=== PATIENT | male | born 1985 | race Caucasian/White ===

== ENCOUNTER → 2016-10-22 | Outpatient (CLI) | payer OTHER ==
[~2016-10-22] MED LIST: AMOX500T PO; PRED10TA PO
[2016-10-22 13:04] LABS: BASO % 0.2 %; BASO ABS # 0.02 K/uL (0-0.2); COMPLETE YES; EOS % 0.5 %; HEMATOCRIT 47.8 % (42-52); IG% 0.1 %; LYMPH % 26.1 %; LYMPH ABS # 2.25 K/uL (1.2-3.4); MEAN CELL VOLUME 92.3 fL (80-100); MEAN CORPUSCULAR HEMOGLOBIN 30.5 pg (25-34); MEAN CORPUSCULAR HGB CONC 33.1 g/dl (32-36); MEAN PLATELET VOLUME 11.5 fL (7.4-10.4); MONO % 8.4 %; NEUT % 64.7 %; PLATELET COUNT 265 K/uL (130-400); RED BLOOD COUNT 5.18 M/uL (4.7-6.1); WHITE BLOOD COUNT 8.61 K/uL (4.8-10.8)
[2016-10-22 13:29] LABS: PROTHROMBIN TIME (PATIENT) 10.7 SECONDS (9.0-12.0)
== END | disposition home or self-care (01) ==
LOC: C.LAB1850 11:55
DX: Z01.818 Encounter for other preprocedural examination (principal)

== ENCOUNTER → 2016-10-26 | Day surgery (SDC) | payer OTHER ==
[2016-10-23 14:06] VITALS: Ht 182.9 cm; Wt 81.8 kg
[~2016-10-26] VITALS: Ht 182.9 cm; Wt 81.8 kg
[~2016-10-26] MED LIST changes: +ATROPINE SULFATE 0.1 MG/ML 5ML SYR IV PRN; +BACITRACIN/POLYMYXIN B OINT 15 GM TUBE EXT ONE; +CEFAZOLIN 2000 MG/60 ML D5W IV SCH; +DEXAMETHASONE SOD INJ 4 MG/ML VIAL ONE; +EpHEDrine SULFATE INJ 50 MG/ML AMP IV PRN; +EpINEphrine INJ 1MG/ML AMP 1 MG/ML AMP ONE; +FENTANYL CITRATE INJ 50 MCG/1 ML 2 ML VIAL IV PRN; +FENTANYL CITRATE INJ 50 MCG/1 ML 2 ML VIAL ONE; +GLYCOPYRROLATE INJ 0.2 MG/ML VIAL ONE; +HYDROCODONE/ACETAMOPHEN 5/325MG TAB PO PRN; +LACTATED RINGER'S 1000ML 1,000 ML IV SCH; +LIDOCAINE 4% MPF SOAK 5 ML = 1 DOSE TOP ONE; +LIDOCAINE HCL 2% 2 ML VIAL (20MG/ML) ONE; +LIDOCAINE/EPINEPHRINE 1% INJ 50 ML VIAL ONE; +MIDAZOLAM HCL 1 MG/ML 2ML VIAL ONE; +NEOSTIGMINE METHYLSULFATE 5 MG/5 ML SYR ONE; +ONDANSETRON INJ 2 MG/ML 2 ML VIAL IV PRN; +ONDANSETRON INJ 2 MG/ML 2 ML VIAL ONE; +OXYMETAZOLINE HCL 0.05% NA SPR 15 ML BTL NAE SCH; +OXYMETAZOLINE HCL 0.05% NA SPR 15 ML BTL PRN; +PROPOFOL IV EMULSION 10 MG/ML 20 ML VIAL IV ONE; +SCOPOLAMINE 1.5 MG TDSY TD ONE
--- NOTE | 2016-10-26 11:42 | History & Physical Bridge - [place] ---
H&P Re-Evaluation Bridge Note: I have examined the patient, reviewed the History & Physical and in the interval since the performance of the History & Physical I have noted the following changes of clinical significance: No changes noted
--- NOTE | 2016-10-26 13:38 | [facility] Operative Report ---
Operative Report Operative Date Oct 26, 2016. Pre-Operative Diagnosis Chronic Sinusitis, Hypertrophy of Nasal Turbinates, Deviated Nasal Septum Post-Operative Diagnosis Same Procedure(s) Performed Image Guided Bilateral Functional Endoscopic Sinus Surgery, Septoplasty, Bilateral Inferior Turbinate Outfracture And Turbinoplasty Surgeon Dr Ray Toll Line Mechanic Surgeon(s) None Estimated Blood Loss 50 mL Findings 1. SEVERE R>L DNS 2. SEVERE B POLYPOSIS WITHIN ETHMOID SINUSES 3. L>R ITH 4. MILD MUCOSAL THICKENING B MAXILLARY AND FRONTAL SINUSES Specimens None I attest to the content of the Intraoperative Record and any orders documented therein. Any exceptions are noted below.
--- NOTE | 2016-10-26 13:42 | Discharge Instructions ---
Discharge Instructions Date of Service Oct 26, 2016. Admission Reason for Admission: Chronic Sinusitis, Hypertrophy Turbintes, Deviated Discharge Discharge Diagnosis / Problem: SAME Discharge Goals Goal(s): Therapeutic intervention Activity Recommendations Activity Limitations: as noted below 1. LIGHT ACTIVITY FOR 2WEEKS 2. NO NOSE BLOWING FOR 2 WEEKS 3. NO ASA/NSAID'S FOR 2WEEKS 4. NO DRIVING WHILE ON NORCO . Current Hospital Diet Patient's current hospital diet: Discharge Diet Recommended Diet: Regular Diet Procedures Procedures Performed: Image Guided Bilateral Functional Endoscopic Sinus Surgery, Septoplasty, Bilateral Inferior Turbinate Outfracture And Turbinoplasty Pending Studies Studies pending at discharge: no Medical Emergencies . Who to Call and When: Medical Emergencies: If at any time you feel your situation is an emergency, please call 911 immediately. . Non-Emergent Contact Non-Emergency issues call your: Surgeon . . "Provider Documentation" section prepared by Jeff Ray. . VTE Core Measure Inpt VTE Proph given/why not?: SCD's
[2016-10-26 14:25] VITALS: TEMP 37
--- NOTE | 2016-10-26 14:45 | Anesthesia Progress Nt - [facility] ---
Anesthesia Post Op Note Date & Time Oct 26, 2016 at 14:45 Vital Signs Pain Intensity: 4 Vital Signs Past 12 Hours Date Time Temp Pulse Resp B/P (MAP) Pulse Ox O2 Delivery O2 Flow Rate FiO2 10/26/16 14:07 Room Air 10/26/16 13:42 36.8 74 16 166/96 99 Diffusion Mask 5 10/26/16 10:09 36.8 59 20 125/76 (92) 95 Room Air Notes Mental Status: alert / awake / arousable, participated in evaluation Pt Amnestic to Procedure: Yes Nausea / Vomiting: adequately controlled Pain: adequately controlled Airway Patency, RR, SpO2: stable & adequate BP & HR: stable & adequate Hydration State: stable & adequate Anesthetic Complications: no major complications apparent
--- NOTE | 2016-10-26 14:46 | OPERATIVE REPORT ---
DATE OF OPERATION: 10/26/2016 PREOPERATIVE DIAGNOSES: 1. Chronic sinusitis. 2. Right greater than left, septal deviation. 3. Left greater than right inferior turbinate hypertrophy. POSTOPERATIVE DIAGNOSES: 1. Chronic sinusitis. 2. Right greater than left, septal deviation. 3. Left greater than right inferior turbinate hypertrophy. PROCEDURES: [employer] Bustronic fusion image guided bilateral endoscopic sinus surgery consisting of: 1. Bilateral maxillary antrostomies. 2. Bilateral complete ethmoidectomies. 3. Bilateral balloon sinuplasty assisted frontal sinusotomies. 4. Septoplasty. 5. Bilateral inferior turbinate outfracture and turbinoplasties. ANESTHESIA: General endotracheal. ESTIMATED BLOOD LOSS: 50 mL. FINDINGS: 1. Severe right greater than left, septal deviation with bony septal spur impinging on the lateral nasal wall and inferior turbinate posteriorly. 2. Left greater than right inferior turbinate hypertrophy. 3. Severe polyposis involving the right greater than left ethmoid sinuses. 4. Mild mucosal thickening involving the bilateral frontal and maxillary sinuses. SURGEON: Dr. Ray. SPECIMENS: None. COMPLICATIONS: None. INDICATIONS FOR THE PROCEDURE: The patient is a 31-year-old male with a history of chronic sinusitis which has been refractory to maximal medical therapy including systemic antibiotics and steroids. A posttreatment CT scan showed near pansinusitis with sparing of the sphenoid sinuses in addition to severe right greater than left septal deviation, and left greater than right inferior turbinate hypertrophy. The patient presents for the above-mentioned procedures on an outpatient elective basis. OPERATION AND FINDINGS: DETAILS OF PROCEDURE: After informed consent had been obtained from the patient, the patient was wheeled to the operating room and placed on the operating table in the supine position. Monitors were placed. After induction of general endotracheal anesthesia, the patient was prepped in usual fashion for image guided sinus surgery. The [employer] fusion headset was placed over the forehead and was registered, calibrated and verified and used for the frontal sinus portions of the case as well as the ethmoid sinus portions of the case. Lidocaine and epinephrine pledgets were placed in the bilateral nasal cavities and pressure applied. After allowing adequate time for vasoconstriction and decongestion, left-sided pledgets were removed and a Sylvania elevator was used to medialize the left middle turbinate. The left middle turbinate and lateral nasal wall were injected with 1% lidocaine with 1:100,000 epinephrine. A lidocaine and epinephrine pledget was then placed in the left middle meatus. The right side was then addressed in a similar fashion. The left-sided pledget was removed. A Sylvania elevator was used to incise the uncinate process and a straight Kunal-Cut forceps and powered instrumentation was used to perform an uncinate resection. The natural ostium of the maxillary sinus was identified and this was enlarged anteriorly, inferiorly, and posteriorly using backbiting forceps and powered instrumentation. A complete ethmoidectomy was then performed using powered instrumentation. Of note, the patient had severe polyposis involving the ethmoid sinuses. A frontal sinus suction using navigation was then used to cannulate the left frontal sinus. A #6 frontal sinus balloon was then inserted into the frontal recess tract and dilated to 12 atmospheres of pressures in 2 different locations. The balloon and catheter were then removed. Powered instrumentation was used to remove polypoid tissue from the left frontal ethmoidal recess. The right side was then addressed in a similar fashion with similar intraoperative findings except the polyposis was more severe on the right and ethmoid sinus. The nasal septum was then injected with 1% lidocaine with 1:100,000 epinephrine. Lidocaine and epinephrine pledgets were placed in the bilateral nasal cavities. After allowing adequate time for anesthesia and vasoconstriction, pledgets were removed and a #15 scalpel was used to make a left hemitransfixion incision through which the left-sided mucoperichondrial and periosteal flap was elevated. A #15 scalpel was then used to incise the quadrangular cartilage with care to preserve a 1.5 cm dorsal and caudal strut and the right-sided mucoperichondrial and mucoperiosteal flap was elevated through this cartilaginous incision. A Leatha swivel knife was then used to remove the deviated portions of the quadrangular cartilage. There was a large septal spur which was removed using Harika forceps. This resulted in a midline septum. The septal cavity was suctioned. The left hemitransfixion incision was closed with several simple interrupted 4-0 chromic sutures. A 4-0 plain gut suture and a Gonzalo needle was then used to perform a quilting stitch of the mucoperichondrial and mucoperiosteal flaps bilaterally to help prevent septal hematoma. A Restrepo elevator was then used to infracture and subsequently outfractured the inferior turbinates bilaterally. These were injected with 1% lidocaine with 1:100,000 epinephrine. A 2.0 mm turbinate blade using powered instrumentation was then used to perform bilateral inferior turbinoplasties in a submucosal fashion. The sinonasal cavities were then suctioned. Merogel was then placed in the bilateral ethmoid cavity/middle meati. An orogastric tube was placed and the stomach was suctioned free of air and stomach contents. This marked the end of the case. The patient tolerated the procedure well. There were no apparent complications. The patient was extubated and transferred to recovery room in stable condition. I attest to the content of the Intraoperative Record and any orders documented therein. Any exception s are noted below.
[2016-10-26 15:00] VITALS: BP 132/85; PULSE 62; O2SAT 97
== END | disposition home or self-care (01) ==
LOC: X.SURG 09:37
DX: J32.9 Chronic sinusitis, unspecified (principal); J34.2 Deviated nasal septum; J34.3 Hypertrophy of nasal turbinates; Z88.1 Allergy status to other antibiotic agents; F17.220 Nicotine dependence, chewing tobacco, uncomplicated; Z68.24 Body mass index [BMI] 24.0-24.9, adult; Z83.49 Family history of other endocrine, nutritional and metabolic diseases; Z84.89 Family history of other specified conditions